=== PATIENT | male | born 1995 | race Caucasian/White ===

== ENCOUNTER 2017-11-08 15:45 | Emergency (ER) | payer OTHER ==
[~2017-11-08] VITALS: Ht 177.8 cm; Wt 54.4 kg
[~2017-11-08 15:45] MED LIST: ALBU90OI61 INH; AMOX50SU PO; BENZ100A PO; CODACEE120 PO; IBUP100S; MELATONIN10 M2 PO; Naprosyn500 MG PO; PENVK500 PO; Veetids 500500 MG PO
[2017-11-08] MEDS ORDERED: Naprosyn500 MG PO (16:17)
[2017-11-08] MEDS ORDERED: Veetids 500500 MG PO (16:17)
== END 2017-11-08 16:22 | disposition home or self-care (01) ==
LOC: ER 15:45
DX: K08.89 Other specified disorders of teeth and supporting structures (principal); Z79.899 Other long term (current) drug therapy; J45.909 Unspecified asthma, uncomplicated; F17.200 Nicotine dependence, unspecified, uncomplicated
CPT/HCPCS: 99283

== ENCOUNTER 2019-09-17 23:40 | Emergency (ER) | payer OTHER ==
[~2019-09-17] VITALS: Ht 177.8 cm; Wt 54.4 kg
== END 2019-09-18 00:42 | disposition home or self-care (01) ==
LOC: ER 23:40
DX: S92.531A Displaced fracture of distal phalanx of right lesser toe(s), initial encounter for closed fracture (principal); W22.8XXA Striking against or struck by other objects, initial encounter; F17.210 Nicotine dependence, cigarettes, uncomplicated
CPT/HCPCS: 73660; 99283-25; A9270-GY